=== PATIENT | male | born 1935 | race Caucasian/White ===

== ENCOUNTER 2017-12-28 09:51 | Emergency (ER) | payer MEDICARE ==
[~2017-12-28] VITALS: Ht 170.2 cm; Wt 71.0 kg
[2017-12-28 09:52] VITALS: BP 152/90; PULSE 68; RESP 18; TEMP 97.1; O2SAT 99
[2017-12-28] MEDS ORDERED: SIMV10TA PO (10:08)
--- NOTE | 2017-12-28 10:21 | PD ---
HPI Chief Complaint: Pain: Acute or Chronic Time Seen by Provider: 10:05 Travel History International Travel<30 days: No Contact w/Intl Traveler<30days: No Traveled to known affect area: No History of Present Illness HPI 82-year-old male presents emergency department for evaluation of left hip pain that has been persistent for 2 weeks. Patient states that he has been playing golf and walking is normal however it is worsened over the last couple days and this morning said to come in because it is the worst it has been. Patient is a rather poor historian describing his symptoms however, states that the pain is worse with sitting and improves with walking. Patient is unable to describe the character of the pain but points to the gluteus. The pain is moderate in severity. Patient denies any radiation of pain. Patient denies any pain in the groin. Denies urinary problems. He denies a history of trauma. Denies chronic medical issues or medication use. Says he has used Aleve without significant improvement. PFSH Past Medical History Diminished Hearing: No Tetanus Vaccination: Unknown ?: Not Social History Alcohol Use: No Tobacco Use: No Substance Use: No Allergies-Medications (Allergen,Severity, Reaction): Coded Allergies: No Known Allergies (Verified Allergy, Unknown, 12/28/17) Reported Meds & Prescriptions Reported Meds & Active Scripts Active Robaxin (Methocarbamol) 500 Mg Tab 500 Mg PO TID 3 Days 1/2-1 tab by mouth up to 3 times daily. Use caution as this medication may make you drowsy. Reported Simvastatin 10 Mg Tab 10 Mg PO DAILY Review of Systems Except as stated in HPI: all other systems reviewed are Neg Physical Exam Narrative GENERAL: Well-nourished, well-developed patient. SKIN: Focused skin assessment warm/dry. HEAD: Normocephalic. EYES: No scleral icterus. No injection or drainage. NECK: Supple, trachea midline. No JVD or lymphadenopathy. CARDIOVASCULAR: Regular rate and rhythm without murmurs, gallops, or rubs. RESPIRATORY: Breath sounds equal bilaterally. No accessory muscle use. GASTROINTESTINAL: Abdomen soft, non-tender, nondistended. MUSCULOSKELETAL: No cyanosis, or edema. Left hip-tenderness palpation to the gluteus muscle and somewhat of the PSIS. Neurovascular intact lower extremity. BACK: Nontender without obvious deformity. No CVA tenderness. Data Data Last Documented VS Vital Signs Date Time Temp Pulse Resp B/P (MAP) Pulse Ox O2 Delivery O2 Flow Rate FiO2 12/28/17 09:52 97.1 68 18 152/90 (110) 99 Orders Orders Hip, Uni(Ap&Lat) W Ap Pelvis (12/28/17 ) Ed Discharge Order (12/28/17 11:26) MDM Medical Decision Making Medical Screen Exam Complete: Yes Emergency Medical Condition: Yes Differential Diagnosis Left hip bursitis, cellulitis, fracture, osteonecrosis, avascular necrosis, sprain, strain Narrative Course 82-year-old male presents emergency department evaluation of left hip pain that is persistent for 2 weeks. Says the pain decreases with walking and increases with sitting. Patient states that he was trying to see his primary care physician but was unable to see them this week. Says he has been able to perform his ADLs as normal but his pain worsened today so decided to come in for evaluation. No acute fracture is seen on x-ray. Because patient did present with muscle spasms to the left gluteus, will prescribe muscle relaxers. Advised use caution while taking these medications. Recommend follow-up with his primary care physician and likely orthopedic physician if symptoms persist. He says that he may be able to follow up with his PCP Monday. Patient to return to the emergency department worsening or persistent symptoms. Diagnosis Primary Impression: Osteoarthritis Qualified Codes: M16.12 - Unilateral primary osteoarthritis, left hip Additional Impression: Muscle spasm Referrals: Orthopedist Primary Care Physician Additional Instructions: Use ice or heat for symptom relief. If no contraindications, you may use Tylenol or Motrin per package instructions for your pain. You may use compression with Gato wrap or similar to reduce swelling. If symptoms persist or worsen, return to the emergency department. Follow up with your primary care physician within 2 days. Scripts Methocarbamol (Robaxin) 500 Mg Tab 500 MG PO TID for Muscle Spasm for 3 Days, TAB 0 Refills 1/2-1 tab by mouth up to 3 times daily. Use caution as this medication may make you drowsy. Prov: Nam Huber MD 12/28/17 Disposition: 01 DISCHARGE HOME Condition: Stable Mariaa Walton December 28, 2017 10:21
--- NOTE | 2017-12-28 11:20 | RADRPT ---
EXAM DATE/TIME: 12/28/2017 10:25 [facility] COMPARISON: No previous studies available for comparison. INDICATIONS : Left anterior hip pain, no known injury. MEDICAL HISTORY : None. SURGICAL HISTORY : None. ENCOUNTER: Initial ACUITY: 2 weeks PAIN SCORE: 10/10 LOCATION: Left hip FINDINGS: Examination of the left hip was performed with AP Pelvis. The primary and secondary trabecular patte rn of the femoral neck is intact. Mild osteoarthritic changes of the left hip. The acetabulum is aleksander ssly intact. Dense atherosclerotic calcification of the regional vasculature. CONCLUSION: 1. Mild osteoarthritic changes with no acute fracture. 2. Dense atherosclerotic calcification of the regional vasculature. Antonino Altman MD on December 28, 2017 at 11:16 Board Certified Radiologist. This report was verified electronically.
[2017-12-28] MEDS ORDERED: ROBA500T PO (11:26)
== END 2017-12-28 11:30 | disposition home or self-care (01) ==
LOC: PHEFT 09:51
DX: M16.12 Unilateral primary osteoarthritis, left hip (principal); M62.838 Other muscle spasm; Z79.899 Other long term (current) drug therapy
CPT/HCPCS: 73502; 99283